=== PATIENT | female | born 1985 | race Caucasian/White ===

== ENCOUNTER 2018-10-11 20:04 | Emergency (ER) | payer OTHER ==
[~2018-10-11] VITALS: Ht 162.6 cm; Wt 78.5 kg
[~2018-10-11 20:04] MED LIST: ACETAMINOPHEN325 M1 PO; AMOXICILLIN875 MG PO; AUGMENTIN 875875 MG PO; BACTRIM DS TAB1 EACH PO; BENTYL20 MG PO; DARVOCET-N 1001 EACH PO; IMODIUM ADVANC1 EAC1 PO; MACROBID 100 M100 M1 PO; PENICILLIN; PRENATAL; SEASONALE1 EACH; TRAZODONE 50 MG50 M1 OR; VALTREX
[2018-10-11 20:19] LABS: URINE BILIRUBIN NEGATIVE (Negative); URINE BLOOD NEGATIVE (Negative); URINE CLARITY CLEAR; URINE COLOR YELLOW; URINE GLUCOSE-RANDOM NEGATIVE (Negative); URINE KETONES TRACE (Negative); URINE LEUKOCYTES-REFLEX TRACE (Negative); URINE NITRITE-REFLEX NEGATIVE (Negative); URINE PROTEIN NEGATIVE (Negative); URINE SPECIFIC GRAVITY >= 1.030 (1.005-1.030); URINE UROBILINOGEN 0.2 E.U./dl (0.2-1.0)
[2018-10-11] MEDS ORDERED: LEXAPRO20 MG PO (20:19)
[2018-10-11] MEDS ORDERED: UNICOMPLEX M TA1 TA1 PO (20:20)
[2018-10-11 20:31] LABS: HEMATOCRIT 43.7 % (37.0-47.0); HEMOGLOBIN 15.2 gm/dL (12.0-15.0); MCH 32.1 pg (26.0-34.0); MCHC 34.7 g/dL (28.0-37.0); MCV 92.5 fL (80.0-100.0); MPV 7.6 fl. (7.2-11.1); NUCLEATED RBCS 0 /100WBC; PLATELET COUNT* 251 thou/uL (150-400); RBC 4.72 mil/uL (4.20-5.00); RDW-CV 12.8 % (10.5-14.5); WBC 7.3 thou/uL (4.0-11.0)
[2018-10-11 20:39] LABS: SQUAMOUS >10 Many /LPF (0-3)
[2018-10-11 20:40] LABS: BACTERIA-REFLEX 1-9 Few /HPF (None Seen); CASTS None Seen /LPF (None Seen); CRYSTALS None Seen /LPF (None Seen); MUCUS 0-3 Light strn/LPF (None Seen); URINE WBC-REFLEX 0-5 Rare /HPF (0-5)
[2018-10-11 20:41] LABS: URINE RBC None Seen /HPF (0-2)
[2018-10-11 20:44] LABS: ALBUMIN 3.6 g/dL (3.4-5.0); CALCIUM 8.6 mg/dL (8.5-10.1); CREATININE 0.9 mg/dL (0.6-1.3); POTASSIUM 3.7 mmol/L (3.5-5.1); TOTAL BILIRUBIN 0.3 mg/dL (<0.1-1.0); TOTAL PROTEIN 6.8 g/dL (6.4-8.2)
[2018-10-11 20:57] LABS: ABSOLUTE EOSINOPHILS 0.2 thou/uL (0.0-0.7); ABSOLUTE LYMPHOCYTES 0.7 thou/uL (0.8-5.3); ABSOLUTE MONOCYTES 0.1 thou/uL (0.0-1.2); ABSOLUTE NEUTROPHILS 6.3 thou/uL (1.6-8.1)
[2018-10-11 20:58] LABS: PLATELET ESTIMATE ADEQUATE
[2018-10-11 21:32] VITALS: BP 117/66
== END 2018-10-11 21:33 | disposition home or self-care (01) ==
LOC: M.ERS 20:04
PROVIDERS: Physician Assistant
DX: E86.0 Dehydration (principal); R19.7 Diarrhea, unspecified; Z90.49 Acquired absence of other specified parts of digestive tract; Z90.710 Acquired absence of both cervix and uterus; Z88.5 Allergy status to narcotic agent; Z88.8 Allergy status to other drugs, medicaments and biological substances